=== PATIENT | male | born 1985 | race Caucasian/White ===

== ENCOUNTER 2023-11-26 20:22 | Emergency (ER) | payer BC, MEDICAID ==
[~2023-11-26] VITALS: Ht 188 cm; Wt 70.3 kg
[2023-11-26 20:32] VITALS: BP_SYST 106; PULSE 87; RESP 19; TEMP 98; O2SAT 100
[2023-11-26] MEDS: ONDANSETRON HCL 4 MG/2 ML VIAL IVP ONE (21:33)
[2023-11-26] MEDS: NACL 0.9% 1,000 ML IV ONE (21:34)
[2023-11-26 21:40] LABS: BASOPHILS # (AUTO) 0.1 K/uL (0.0-0.2); BASOPHILS % (AUTO) 0.5 % (0.0-2.0); EOSINOPHILS % (AUTO) 0.4 % (0.0-4.0); HEMATOCRIT 47.1 % (36-54); HEMOGLOBIN 15.8 g/dL (14.0-18.0); LYMPHOCYTES # (AUTO) 0.6 K/uL (1.0-5.5); LYMPHOCYTES % (AUTO) 4.9 % (20.5-51.5); MEAN CORPUSCULAR HEMOGLOBIN 25 pg (27-31); MEAN CORPUSCULAR HGB CONC 34 % (32-36); MEAN CORPUSCULAR VOLUME 75 fL (79.0-98.0); MONOCYTES # (AUTO) 0.6 K/uL (0.0-1.0); MONOCYTES % (AUTO) 4.9 % (1.7-9.3); NEUTROPHILS # (AUTO) 11.1 K/uL (1.8-7.7); NEUTROPHILS % (AUTO) 89.3 % (40.0-70.0); PLATELET COUNT (AUTO) 197 K/uL (130-430); RED BLOOD CELL COUNT(AUTO) 6.27 MIL/uL (4.2-6.2); RED CELL DISTRIBUTION WIDTH 14.7 % (9.0-15.0); WHITE BLOOD COUNT (AUTO) 12.4 K/uL (4.8-10.8)
[2023-11-26] MEDS: MORPHINE 4 MG INJ. 4 MG/ML VIAL IVP ONE (21:45)
[2023-11-26] MEDS ORDERED: MORPHINE 4 MG INJ. 4 MG/ML VIAL ONE (21:47)
[2023-11-26 21:53] LABS: ALBUMIN 4.3 g/dL (3.4-4.8); BILIRUBIN,DIRECT 0.2 mg/dL (0.0-0.3); CALCIUM 9.5 mg/dL (8.4-11.0); CREATININE 1.33 mg/dL (0.55-1.30); POTASSIUM 4.3 mmol/L (3.5-5.1); TOTAL BILIRUBIN 0.8 mg/dL (0.0-1.0); TOTAL PROTEIN, SERUM 7.6 g/dL (6.4-8.3)
[2023-11-26 22:00] VITALS: O2SAT 99
[2023-11-26 22:58] VITALS: BP_SYST 115; PULSE 80; RESP 20; TEMP 98.3
== END 2023-11-26 22:58 | disposition home or self-care (01) ==
LOC: SED 20:22
DX: A05.9 Bacterial foodborne intoxication, unspecified (principal); R10.84 Generalized abdominal pain; R11.2 Nausea with vomiting, unspecified; Z98.890 Other specified postprocedural states
CPT/HCPCS: 99284; 96374; 96361; 96375; 80076; 80048; 83690; 85025; 36415; J2405; J2270; J7030